=== PATIENT | female | born 1995 | race Asian ===

== ENCOUNTER 2022-08-19 08:40 | Emergency (ER) | payer BC, OTHER ==
[~2022-08-19] VITALS: Ht 154.9 cm; Wt 89.2 kg
[2022-08-19 09:07] VITALS: BP 147/99
[2022-08-19] MEDS ORDERED: AZIT500T66 PO (09:12)
[2022-08-19] MEDS ORDERED: IBUP600T27 PO (09:12)
== END 2022-08-19 09:36 | disposition home or self-care (01) ==
LOC: ER 08:40
DX: J03.90 Acute tonsillitis, unspecified (principal)